=== PATIENT | male | born 1980 | race Hispanic/Latino ===

== ENCOUNTER 2021-05-23 02:57 | Inpatient (IN) | payer OTHER, SELFPAY ==
[2021-05-23] VITALS (8 sets, daily range): BP systolic 107–138; BP diastolic 66–90; PULSE 89–97; RESP 15–18; TEMP 36.1–36.6; O2SAT 94–99; BMI 28.4; BMI 27.6
--- NOTE | 2021-05-23 02:59 | ED.CHESTPAIN ---
HPI - Chest Pain General Chief Complaint: Upper Respiratory Symptoms Stated Complaint: covid+/heart trouble Time Seen by Provider: 05/23/21 02:59 History of Present Illness HPI narrative: 41-year-old male nonsmoker with noncontributory medical history presents with a chief complaint of feeling fatigued with chills, achy for the past day or 2. He has been vaccinated against COVID but started developing symptoms on Monday and then Monday tested positive at a local drug store. He has had nasal congestion but denies any runny nose or sore throat. He denies any vomiting but has been nauseated with poor appetite. He is drinking water and keeping it down. He denies abdominal pain, diarrhea, dysuria, frequency or urgency. He feels dizzy, weak, lightheaded, and a bit confused. Related Data Allergies Allergy/AdvReac Type Severity Reaction Status Date / Time No Known Drug Allergies Allergy Verified 05/23/21 03:06 Review of Systems Review of Systems Narrative: GENERAL: See HPI HEENT: Denies sinus pain, ear pain, sore throat, difficulty swallowing, dizziness. RESPIRATORY: Denies dyspnea, cough, wheezing, hemoptysis, sputum. CARDIOVASCULAR: Denies chest pain, palpitations, orthopnea, edema, GASTROINTESTINAL: See HPI. : Denies dysuria, frequency, incontinence, hematuria, urinary retention. MUSCULOSKELETAL: denies weakness, joint pain, or bony pain SKIN: Denies rash, skin lesions, or other NEUROLOGIC: Denies weakness, headache, numbness, change in speech, confusion, seizures, incoordination. PSYCHIATRIC: No concerning psychosocial issues. 12 point review of systems is negative except for those stated above Patient History Social History Smoking Status: Never smoker Exam Narrative Exam Narrative: GENERAL: [41 year old patient appears stated age. Well-developed patient, in mild distress. Anxious, clearly not feeling well HEAD: Atraumatic. Normocephalic. EYES: Pupils equal round and reactive. Extraocular motions intact. No scleral icterus. No injection or drainage. ENT: Dry mucous mebranes. Nose without bleeding, purulent drainage. Throat without erythema, tonsillar hypertrophy or exudate. Airway patent. NECK: Trachea midline. Non tender CARDIOVASCULAR: Regular rate and rhythm without murmurs, gallops, or rubs. RESPIRATORY: Clear to auscultation. Breath sounds equal bilaterally. No wheezes, rales, or rhonchi. GASTROINTESTINAL: Abdomen soft, non-tender, nondistended. EXTREMITIES: No edema or joint tenderness. BACK: Nontender without deformity or crepitance. No flank tenderness. NEURO: AOx3. SKIN: No rash or erythema of visible areas Initial Vital Signs Initial Vital Signs: Vital Signs Temperature 97 F L 05/23/21 03:06 Pulse Rate 97 H 05/23/21 03:06 Respiratory Rate 15 05/23/21 03:06 Blood Pressure 133/90 05/23/21 03:06 Pulse Oximetry 98 05/23/21 03:06 Course Orders Ordered: ED Orders 05/23/21 03:06 EKG-12 Lead Stat 05/23/21 03:07 XR chest 1V Stat 05/23/21 03:15 C-Reactive Protein Quant Stat Complete Blood Count AUTO DIFF Stat Comprehensive Metabolic Panel Stat D Dimer Stat Lactate Dehydrogenase Stat NT-proBNP (BNP-Adult 18+) Stat Troponin & CK Cardiac Panel Stat 05/23/21 03:58 COVID19 - ADMIT ([employer]OR [employer] swab/PCR) Stat 05/23/21 04:00 Osmolality Urine Stat Osmolality, Serum Stat Sodium Urine Random Stat Discontinued Medications Sodium Chloride (Normal Saline 0.9%) 1,000 mls @ 1,000 mls/hr IV BOLUS ONE Stop: 05/23/21 04:05 Last Infusion: 05/23/21 04:24 Dose: Infused Documented by: Vital Signs Vital signs: Vital Signs - 8 hr 05/23/21 03:06 Temperature 97 F L Pulse Rate 97 H Respiratory Rate 15 Blood Pressure 133/90 Pulse Oximetry 98 MDM - Chest Pain Lab Data Result diagrams: 05/23/21 03:15 05/23/21 03:15 Labs: Lab Results 05/23/21 05/23/21 05/23/21 Range/Units 03:15 03:15 03:15 WBC 8.6 (4.5-11.0) X10^3/uL RBC 5.30 (4.5-5.9) X10^6/uL Hgb 14.8 (13.5-17.5) g/dL Hct 43.9 (41-53) % MCV 82.7 (80-100) fL MCH 27.9 (26-34) PG MCHC 33.7 (30-36) % RDW 13.4 (11.6-14.8) % Plt Count 159 (150-400) X10^3/uL Neut % (Auto) 76.1 H (50-75) % Lymph % (Auto) 18.7 L (25-40) % [place] % (Auto) 4.6 (3-14) % Eos % (Auto) 0.0 L (2-4) % Baso % (Auto) 0.6 (0-2) % Neut # (Auto) 6500 (2415-3370) /uL Lymph # (Auto) 1600 (7362-5163) /uL [place] # (Auto) 400 (0-900) /uL Eos # (Auto) 0 (0-450) /uL Baso # (Auto) 100 (0-100) /uL D-Dimer 324 H (<230) ng/mL Sodium 127 L (137-145) mmol/L Potassium 3.8 (3.4-5.1) mmol/L Chloride 91 L (98-107) mmol/L Carbon Dioxide 27 (22-32) mmol/L BUN 9 (9-20) mg/dL Creatinine 0.78 (0.66-1.25) mg/dL Estimated GFR > 60.0 (>60) mL/min BUN/Creatinine Ratio 11.5 (6-22) Glucose 113 H (70-100) mg/dL Calcium 8.4 (8.4-10.2) mg/dL Total Bilirubin 0.6 (0.2-1.3) mg/dL AST 72 H (17-59) IU/L ALT 38 (<50) IU/L Alkaline Phosphatase 84 (38-126) U/L Lactate Dehydrogenase (313-618) U/L Total Creatine Kinase (55-170) U/L CK-MB (CK-2) (<2.37) ng/mL CK-MB (CK-2) Rel Index (1.5-5.0) % Troponin I (0.01-0.034) ng/mL C-Reactive Protein 6.9 H (<1.0) mg/dL NT-Pro-B Natriuret Pep (<125) pg/mL Total Protein 7.6 (6.3-8.2) g/dL Albumin 4.1 (3.5-5.0) g/dL Globulin 3.5 (1.7-4.1) g/dL Albumin/Globulin Ratio 1.2 (1.0-2.8) Ur Random Sodium (30-90) mmol/L SARS-CoV-2 (PCR) (Negative) 05/23/21 05/23/21 05/23/21 Range/Units 03:15 03:58 04:13 WBC (4.5-11.0) X10^3/uL RBC (4.5-5.9) X10^6/uL Hgb (13.5-17.5) g/dL Hct (41-53) % MCV (80-100) fL MCH (26-34) PG MCHC (30-36) % RDW (11.6-14.8) % Plt Count (150-400) X10^3/uL Neut % (Auto) (50-75) % Lymph % (Auto) (25-40) % [place] % (Auto) (3-14) % Eos % (Auto) (2-4) % Baso % (Auto) (0-2) % Neut # (Auto) (8810-2694) /uL Lymph # (Auto) (7802-6936) /uL [place] # (Auto) (0-900) /uL Eos # (Auto) (0-450) /uL Baso # (Auto) (0-100) /uL D-Dimer (<230) ng/mL Sodium (137-145) mmol/L Potassium (3.4-5.1) mmol/L Chloride (98-107) mmol/L Carbon Dioxide (22-32) mmol/L BUN (9-20) mg/dL Creatinine (0.66-1.25) mg/dL Estimated GFR (>60) mL/min BUN/Creatinine Ratio (6-22) Glucose (70-100) mg/dL Calcium (8.4-10.2) mg/dL Total Bilirubin (0.2-1.3) mg/dL AST (17-59) IU/L ALT (<50) IU/L Alkaline Phosphatase (38-126) U/L Lactate Dehydrogenase 997 H (313-618) U/L Total Creatine Kinase 906 H (55-170) U/L CK-MB (CK-2) 1.34 (<2.37) ng/mL CK-MB (CK-2) Rel Index 0.1 L (1.5-5.0) % Troponin I < 0.012 (0.01-0.034) ng/mL C-Reactive Protein (<1.0) mg/dL NT-Pro-B Natriuret Pep < 11 (<125) pg/mL Total Protein (6.3-8.2) g/dL Albumin (3.5-5.0) g/dL Globulin (1.7-4.1) g/dL Albumin/Globulin Ratio (1.0-2.8) Ur Random Sodium 18 L (30-90) mmol/L SARS-CoV-2 (PCR) Positive H (Negative) Imaging Data Chest x-ray: Radiologist's Impression: Patchy parenchymal opacities bilaterally greater on the left consistent with pneumonia ECG Data Interpretation: EKG is normal sinus rhythm rate [87 ] and free of any signs of ischemia or ectopy. No ST segmental elevation or depression. No T wave inversions Discharge Plan Departure Patient Disposition: Admitted As Inpatient Clinical Impression: COVID-19, Acute hyponatremia Admit Date/Time: 05/23/21 04:42 Admit Provider: Wiley Kennedy
--- NOTE | 2021-05-23 03:07 | DI.RAD.S_ITS ---
PROCEDURE: XR CHEST 1V INDICATIONS: flu-like symptoms TECHNIQUE: One view of the chest was acquired. COMPARISON: None. FINDINGS: Surgical changes and devices: None. Lungs and pleura: Bilateral patchy interstitial type infiltrates are seen. No pleural effusions or pneumothorax. Low lung volumes are noted. This causes a crowded appearance to the lung markings and limits evaluation. Mediastinum: Mediastinal contours appear normal. Heart size is normal. Bones and chest wall: No suspicious bony lesions. Overlying soft tissues appear unremarkable. IMPRESSION: Bilateral interstitial infiltrates are seen. Please consider COVID pneumonia. Note: No significant discrepancy from the preliminary report. Dictated by: Pedro Pablo Garnica M.D. on 05/23/2021 at 8:08 Approved by: Pedro Pablo Garnica M.D. on 05/23/2021 at 8:09
[2021-05-23] MEDS: SODIUM CHLORIDE 0.9% 1,000 ML 1000 ML IV (03:23)
[2021-05-23 03:29] LABS: Add Manual Diff / Slide Review NO; Basophils Absolute Auto 100 /uL (0-100); Basophils Percent Auto 0.6 % (0-2); Eosinophils Absolute Auto 0 /uL (0-450); Hematocrit 43.9 % (41-53); Hemoglobin 14.8 g/dL (13.5-17.5); Lymphocytes Absolute Auto 1600 /uL (1100-4500); Lymphocytes Percent Auto 18.7 % (25-40); Mean Corpuscular HGB Conc 33.7 % (30-36); Mean Corpuscular Hemoglobin 27.9 PG (26-34); Mean Corpuscular Volume 82.7 fL (80-100); Monocytes Absolute Auto 400 /uL (0-900); Monocytes Percent Auto 4.6 % (3-14); Neutrophils Absolute Auto 6500 /uL (1500-7000); Neutrophils Percent Auto 76.1 % (50-75); Platelet Count 159 X10^3/uL (150-400); Red Cell Distribution Width 13.4 % (11.6-14.8); White Blood Cell Count 8.6 X10^3/uL (4.5-11.0)
[2021-05-23 03:37] LABS: D Dimer 324 ng/mL (<230)
[2021-05-23 03:38] LABS: Creatine Kinase 906 U/L (55-170); Lactate Dehydrogenase 997 U/L (313-618)
[2021-05-23 03:40] LABS: Alanine Aminotransferase 38 IU/L (<50); Albumin 4.1 g/dL (3.5-5.0); Albumin Globulin Ratio 1.2 (1.0-2.8); Alkaline Phosphatase 84 U/L (38-126); Aspartate Aminotransferase 72 IU/L (17-59); BUN Creatinine Ratio 11.5 (6-22); Bilirubin Total 0.6 mg/dL (0.2-1.3); Blood Urea Nitrogen 9 mg/dL (9-20); C-Reactive Protein Quant 6.9 mg/dL (<1.0); Calcium 8.4 mg/dL (8.4-10.2); Carbon Dioxide 27 mmol/L (22-32); Chloride 91 mmol/L (98-107); Estimated Glomerular Filt Rate > 60.0 mL/min (>60); Globulin 3.5 g/dL (1.7-4.1); Glucose 113 mg/dL (70-100); HEMOLYSIS 16 (0-50); Potassium 3.8 mmol/L (3.4-5.1); Sodium 127 mmol/L (137-145); Total Protein 7.6 g/dL (6.3-8.2)
[2021-05-23 03:49] LABS: NT-proBNP (BNP-Adult 18+) < 11 pg/mL (<125); Troponin I < 0.012 ng/mL (0.01-0.034)
[2021-05-23 03:53] LABS: CKMB % Relative Index 0.1 % (1.5-5.0); Creatine Kinase MB 1.34 ng/mL (<2.37)
[2021-05-23 04:35] LABS: Sodium Urine Random 18 mmol/L (30-90)
[2021-05-23 04:44] LABS: COVID19 - ADMIT (NP swab/PCR) POSITIVE (Negative)
--- NOTE | 2021-05-23 05:52 | P.HP_ITS ---
History of Present Illness History of Present Illness Date Patient Seen: 05/23/21 Time Patient Seen: 06:00 Chief complaint: covid+/heart trouble Narrative: Mr. Romero is a 41M with no significant PMH who presents with fatigue, chills, adn some confusion. He states he has been vaccinated against COVID> His symptoms began with nasal congestion on Monday, he tested positive for COVID Monday. He has been nauseous and not eating well. No abdominal pain, vomiting, diarrhea. No shortness of breath. He has had a cough he thinks secondary to his postnasal drip. In the ED workup was done, vitals were normal. CBC was unremarkable, Na 127, urine na 18, creatinine 0.78, crp 6.9, ldh 997, COVID+. Chest xray showed bilateral opacities. He was given IVF and admitted for further treatment. PMH: None Family History: Father, Hypertension Social history: No smoking, occassional alcohol Meds: None Patient History Family & Social History Safety & Behavioral: Feels Safe in Current Yes Environment Tobacco & Substance use: Smoking Status Never smoker Substance Use Type does not use Meds Home Medications and Allergies Allergies Allergy/AdvReac Type Severity Reaction Status Date / Time No Known Drug Allergies Allergy Verified 05/23/21 03:06 Review of Systems Review of Systems Narrative: 14 systems reviewed and negative aside from what is noted in HPI Exam Vital Signs (past 8 hours): - 05/23/21 03:06 05/23/21 05:15 05/23/21 05:46 Temperature 97 F L 98 F 98 F Pulse Rate 97 H 96 H 96 H Respiratory Rate 15 18 18 Blood Pressure 133/90 138/79 138/79 Pulse Oximetry 98 99 99 Oxygen Delivery Method Room Air Narrative Exam Narrative: GEN: no acute distress HEENT: PERRL, dry mucous membranes NECK: no jvd, trachea midline CV: regular rate and rhythm, no murmurs PULM: clear bilaterally, no wheezes, rhonchi, rales ABD: soft, nontender, nondistended, no organomegaly, normal bowel sounds EXT: warm and well perfused with no edema NEURO: awake alert and oriented, mild confusion, no focal deficits PSYCH: pleasant, cooperative Objective Labs Result Diagrams: 05/23/21 03:15 05/23/21 03:15 Labs: Laboratory Results - last 24 hr 05/23/21 05/23/21 05/23/21 03:15 03:15 03:15 WBC 8.6 RBC 5.30 Hgb 14.8 Hct 43.9 MCV 82.7 MCH 27.9 MCHC 33.7 RDW 13.4 Plt Count 159 Neut % (Auto) 76.1 H Lymph % (Auto) 18.7 L [place] % (Auto) 4.6 Eos % (Auto) 0.0 L Baso % (Auto) 0.6 Neut # (Auto) 6500 Lymph # (Auto) 1600 [place] # (Auto) 400 Eos # (Auto) 0 Baso # (Auto) 100 D-Dimer 324 H Sodium 127 L Potassium 3.8 Chloride 91 L Carbon Dioxide 27 BUN 9 Creatinine 0.78 Estimated GFR > 60.0 BUN/Creatinine Ratio 11.5 Glucose 113 H Calcium 8.4 Total Bilirubin 0.6 AST 72 H ALT 38 Alkaline Phosphatase 84 Lactate Dehydrogenase Total Creatine Kinase CK-MB (CK-2) CK-MB (CK-2) Rel Index Troponin I C-Reactive Protein 6.9 H NT-Pro-B Natriuret Pep Total Protein 7.6 Albumin 4.1 Globulin 3.5 Albumin/Globulin Ratio 1.2 Ur Random Sodium SARS-CoV-2 (PCR) 05/23/21 05/23/21 05/23/21 03:15 03:58 04:13 WBC RBC Hgb Hct MCV MCH MCHC RDW Plt Count Neut % (Auto) Lymph % (Auto) [place] % (Auto) Eos % (Auto) Baso % (Auto) Neut # (Auto) Lymph # (Auto) [place] # (Auto) Eos # (Auto) Baso # (Auto) D-Dimer Sodium Potassium Chloride Carbon Dioxide BUN Creatinine Estimated GFR BUN/Creatinine Ratio Glucose Calcium Total Bilirubin AST ALT Alkaline Phosphatase Lactate Dehydrogenase 997 H Total Creatine Kinase 906 H CK-MB (CK-2) 1.34 CK-MB (CK-2) Rel Index 0.1 L Troponin I < 0.012 C-Reactive Protein NT-Pro-B Natriuret Pep < 11 Total Protein Albumin Globulin Albumin/Globulin Ratio Ur Random Sodium 18 L SARS-CoV-2 (PCR) Positive H Assessment & Plan Assessment & Plan narrative: Mr. Romero is a 41M with no significant PMH who presents with confusion, fatigue, nausea found to have COVID pneumonia and hyponatremia. 1. Metabolic encephalopathy secondary to hypovolemic hyponatremia -likely secondary to acute illness from COVID -Na moderately decreased to 127, physical exam shows hypovolemia, urine Na low at 18 -received IVF in ED, continue IV fluid -recheck sodium -if symptoms not resolved will need to consider further workup for source of confusion -osms sent by ED are pending 2. Covid pneumonia -currently doing well from respiratory standpoint, not requiring oxygen -supportive care for now CODE: Full Proxy: Mia Romero, spouse I?have utilized all available immediate resources to obtain, update, or review the patient's current medications. Time Spent With Patient Critical Care time: I spent a total of [] minutes of critical care time on this patient's care today; this time is exclusive of procedural time. Quality MIPS - Admit I confirm the patient?s Advance Care Plan is present, Code status is documented, Surrogate decision maker is in patient?s record [If Yes, STOP here]: Yes
[2021-05-23] MEDS: SODIUM CHLORIDE 0.9% 1,000 ML 125 ML IV ×2 (06:34→14:26)
[2021-05-23] MEDS: ACETAMINOPHEN 325 MG TABLET 650 MG PO (06:34)
[2021-05-23] MEDS: diphenhydrAMINE 25 MG TABLET PO (06:34)
--- NOTE | 2021-05-23 06:49 | PC.ADMIT ---
Patient admitted to room 219 per wheelchair from ED. Up to bathroom with SBA as complains of feeling weak and dizzy. Is alert and oriented. Breath sounds CTA with RA sat of 99%. States he feels SOB when lying flat but otherwise denies. Does have occasional dry sounding, non-productive cough and sounds like some nasal congestion. HRR; denies chest pain. Denies nausea. BT present and abdomen is soft. Denies dysuria, frequency or urgency; voided 525cc clear yellow urine per urinal. Is able to move self in bed. Does complain of 8/10 headache and so medicated with Tylenol. States he has had body aches but no fever. Bilateral calf SCD's applied. Fall risk score is moderate; agrees to call for assistance when needing to get out of bed so alarm not activated. Placed on droplet/aerosolizing precautions as is covid positive. Oriented to bed controls and call light. Dr Kennedy in to see patient. [address] Admission Note: The patient,Juan Romero,41 y/o, was given written information regarding hospital policies, unit procedures and contact persons. Patient's smoking status: Never smoker. Vital Signs - 8 hr 05/23/21 03:06 05/23/21 05:15 05/23/21 05:46 Temperature 97 F L 98 F 98 F Pulse Rate 97 H 96 H 96 H Respiratory Rate 15 18 18 Blood Pressure 133/90 138/79 138/79 Pulse Oximetry 98 99 99
[2021-05-23 07:53] LABS: BUN Creatinine Ratio 11.9 (6-22); Blood Urea Nitrogen 7 mg/dL (9-20); Calcium 7.8 mg/dL (8.4-10.2); Carbon Dioxide 25 mmol/L (22-32); Chloride 96 mmol/L (98-107); Estimated Glomerular Filt Rate > 60.0 mL/min (>60); Glucose 111 mg/dL (70-100); HEMOLYSIS < 15 (0-50); Potassium 3.8 mmol/L (3.4-5.1); Sodium 127 mmol/L (137-145)
[2021-05-23] MEDS: ENOXAPARIN 40 MG/0.4 ML SYRINGE SUBCUT (09:46)
--- NOTE | 2021-05-23 10:50 | CM.DANOTE ---
DCP: Case received, EMR reviewed. Did not meet with patient in person secondary to his being COVID positive, but was able to call patient's room. Did call his room and introduced self and role. Was able to obtain information regarding some of his history prior to hospitalization. DCP assessment was completed with information currently available. Patient is a 41 year old male who admitted early this morning to the care of the hospitalist team. PCP: No specific provider at this time, per patient. Payer: confirmed: Radhika Truong. Patient came to the hospital via private vehicle secondary to having increased weakness, as well as chills. Patient had been diagnosed last Monday with COVID 19. He has been vaccinated. He came in due to these symptoms, including nausea and loose stools. His current diagnosis is COVID, hyponatremia, as well as possible pneumonia. He is not on oxygen. Called patient's room. He is alert. Confirmed that he resides in [place] with his spouse, and children. He is in the [employer], had been active duty. He indicated that he does not have a primary provider at this time. He also mentioned that his was positive for COVID, and in isolation as well. P: DCP to continue to follow for any needs. He is currently not in need of oxygen, he will continue to get fluids, to stabilize electrolytes. He should be able to go home when he is deemed medically stable. Edel Kauffman RN/Digital Engineer Discharge Planning/Care Management CM Discharge Assessment Start: 05/23/21 10:48 Freq: Status: Active Protocol: Document 05/23/21 10:48 (Rec: 05/23/21 10:49 [id number]) Discharge Planning Assessment Assigned Channel Worker Edel Kauffman RN/Digital Engineer Advance Directives? No History Provided By Patient,Medical Record Prior Living Arrangements House Household Members spouse,children Type of transporation used prior to Drives own vehicle admit Independent with ADL's Yes Is patient alert and oriented? Yes Caregiver for Another Has children at home Barriers to Discharge No Discharge Plan Home Transportation Arrangement Spouse Referrals Initiated None needed Whiteboard Updated in Patient Room with No name and ext. # of Channel Worker Comment Patient is COVID positive, did not enter room. Review Status In Process Next Review Type Continued Stay Review
[2021-05-23] MEDS: CYCLOBENZAPRINE 10 MG TABLET PO (12:45)
[2021-05-23] MEDS: IBUPROFEN 400 MG TABLET 800 MG PO ×2 (12:46→20:39)
[2021-05-23] MEDS: ONDANSETRON 4 MG ODT SL (12:46)
--- NOTE | 2021-05-23 19:22 | PC.NURSE ---
TOLERATING RA W/O PROBLEMS. O2 SATS HIGH 90S. DENIES SOB/DYSPNEA. AMBULATE IN ROOM SHORT DISTANCES NO SOB. USED CALL LIGHT X 3 FOR SBA W/ AMBULATE TO BATHROOM. APPETITE IS FAIR. SNACKS OFFERED BETWEEN MEALS. CONTINUES W/ IVF NS AT 125. CBC AND BMP TOMORROW
[2021-05-24 02:57] VITALS: BMI 27.6
[2021-05-24] MEDS: IBUPROFEN 400 MG TABLET 800 MG PO (04:30)
[2021-05-24 05:35] LABS: Add Manual Diff / Slide Review NO; Basophils Absolute Auto 100 /uL (0-100); Basophils Percent Auto 0.7 % (0-2); Eosinophils Absolute Auto 0 /uL (0-450); Hematocrit 39.4 % (41-53); Hemoglobin 13.2 g/dL (13.5-17.5); Lymphocytes Absolute Auto 1200 /uL (1100-4500); Lymphocytes Percent Auto 16.1 % (25-40); Mean Corpuscular HGB Conc 33.4 % (30-36); Mean Corpuscular Volume 83.7 fL (80-100); Monocytes Absolute Auto 200 /uL (0-900); Monocytes Percent Auto 2.5 % (3-14); Neutrophils Absolute Auto 5800 /uL (1500-7000); Neutrophils Percent Auto 80.7 % (50-75); Platelet Count 172 X10^3/uL (150-400); Red Blood Cell Count 4.71 X10^6/uL (4.5-5.9); Red Cell Distribution Width 13.6 % (11.6-14.8); White Blood Cell Count 7.3 X10^3/uL (4.5-11.0)
[2021-05-24 05:42] LABS: BUN Creatinine Ratio 10.9 (6-22); Blood Urea Nitrogen 7 mg/dL (9-20); Calcium 7.7 mg/dL (8.4-10.2); Carbon Dioxide 28 mmol/L (22-32); Chloride 98 mmol/L (98-107); Estimated Glomerular Filt Rate > 60.0 mL/min (>60); Glucose 92 mg/dL (70-100); HEMOLYSIS < 15 (0-50); Sodium 131 mmol/L (137-145)
[2021-05-24 08:20] VITALS: BP 122/68; PULSE 93; RESP 19; TEMP 37.1; O2SAT 94
[2021-05-24] MEDS: ENOXAPARIN 40 MG/0.4 ML SYRINGE SUBCUT (08:46)
[2021-05-24] MEDS: SODIUM CHLORIDE 0.9% 1,000 ML 125 ML IV (08:48)
--- NOTE | 2021-05-24 09:21 | DIET.CONS ---
Dietary Consultation Note Admission Date: 05/23/2021 04:42 Assessment: Kitchen sending up ONS Ensure Max to support high protein needs of this overweight pt c covid+ status. Ht: 177.8 cm Wt: 87.5 kg BMI: 27.6 Last BM: 05/23/21 (05/24/21 02:57) MNA: 14 Arthur Score: 20 Diet: 05/23/21 Breakfast Heart Healthy Diet Diet Modifications: ONS Ensure Max c lunch Percent of last meal consumed (last 48h) Percent Meal Consumed 75% 05/23/21 18:29 Percent Meal Consumed Drank all of his protein shake 05/23/21 13:18 Percent Meal Consumed a few sips of protein shake/ made 05/23/21 11:45 him nauseous Labs: RBC 4.71 X10^6/uL (4.5-5.9) 05/24/21 05:09 Hgb 13.2 g/dL (13.5-17.5) L 05/24/21 05:09 Hct 39.4 % (41-53) L 05/24/21 05:09 Creatinine 0.64 mg/dL (0.66-1.25) L 05/24/21 05:09 NT-Pro-B Natriuret Pep < 11 pg/mL (<125) 05/23/21 03:15
[2021-05-24 09:45] VITALS: O2SAT 94
--- NOTE | 2021-05-24 10:20 | PM.DS.1 ---
History of Present Illness History of Present Illness Date Patient Seen: 05/24/21 Time Patient Seen: 10:20 Chief complaint: covid+/heart trouble Narrative: Per Dr. Kennedy, Mr. Romero is a 41M with no significant PMH who presents with fatigue, chills, adn some confusion. He states he has been vaccinated against COVID> His symptoms began with nasal congestion on Monday, he tested positive for COVID Monday. He has been nauseous and not eating well. No abdominal pain, vomiting, diarrhea. No shortness of breath. He has had a cough he thinks secondary to his postnasal drip. In the ED workup was done, vitals were normal. CBC was unremarkable, Na 127, urine na 18, creatinine 0.78, crp 6.9, ldh 997, COVID+. Chest xray showed bilateral opacities. He was given IVF and admitted for further treatment. PMH: None Family History: Father, Hypertension Social history: No smoking, occassional alcohol Meds: None Discharge Providers Provider Date of admission: 05/23/21 04:42 Discharge Date: 05/24/21 Consults: 05/23/21 06:11 Consult to Pastoral Services Routine Comment: patient request Discharge provider: Victorino Chopra DO Summary Hospital Course Discharge Diagnosis: 1. Metabolic encephalopathy secondary to hypovolemic hyponatremia, acute, present on admission, now resolved 2. Covid pneumonia and diarrhea, diarrhea resolved Hospital Course: This is a 41-year-old male admitted with mild confusion in the setting of hypovolemic hyponatremia secondary to diarrhea from a COVID-19 infection. His sodium level continued to improve with fluids, and urine sodium was consistent with hypovolemia given a urine sodium of 18. His diarrhea resolved shortly after admission and he improved quicker than expected. The following morning, his sodium was 131, and he was tolerating oral intake well. He was discharged home. He is recommended to self isolate at home per CDC guidelines. Patient was vaccinated against COVID-19. Time Spent with Patient Time spent: Less than 30 minutes Exam Vital Signs (past 8 hours): - 05/24/21 08:20 05/24/21 09:45 Temperature 98.8 F Pulse Rate 93 H Respiratory Rate 19 Blood Pressure 122/68 Pulse Oximetry 94 94 Oxygen Delivery Method Room Air Oxygen Flow Rate 0 Narrative Exam Narrative: GEN: mildly ill appearing, fatigued, but no acute distress HEENT: PERRL, moist mucous membranes NECK: no jvd, trachea midline CV: regular rate and rhythm, no murmurs PULM: clear bilaterally, no wheezes, rhonchi, rales ABD: soft, nontender, nondistended, no organomegaly EXT: warm and well perfused with no edema NEURO: awake alert and oriented, mild confusion, no focal deficits PSYCH: pleasant, cooperative Objective Labs Result Diagrams: 05/24/21 05:09 05/24/21 05:09 Labs: Laboratory Results - last 24 hr 05/24/21 05/24/21 05:09 05:09 WBC 7.3 RBC 4.71 Hgb 13.2 L Hct 39.4 L MCV 83.7 MCH 28.0 MCHC 33.4 RDW 13.6 Plt Count 172 Neut % (Auto) 80.7 H Lymph % (Auto) 16.1 L [place] % (Auto) 2.5 L Eos % (Auto) 0.0 L Baso % (Auto) 0.7 Neut # (Auto) 5800 Lymph # (Auto) 1200 [place] # (Auto) 200 Eos # (Auto) 0 Baso # (Auto) 100 Sodium 131 L Potassium 4.0 Chloride 98 Carbon Dioxide 28 BUN 7 L Creatinine 0.64 L Estimated GFR > 60.0 BUN/Creatinine Ratio 10.9 Glucose 92 Calcium 7.7 L PFSH Social History household members: spouse and children Smoking Status: Never smoker alcohol intake: former Discharge Plan Discharge Plan Patient Disposition: Home Provider Discharge Comment: You were admitted to the hospital with a low sodium level and dehydration due to COVID 19. You improved with IV fluids. Continue to stay well hydrated at home. Discharge orders & Medications Prescriptions: Continued acetaminophen [Tylenol] 325 mg Tablet 650 mg PO Q4H PRN (Reason: pain) RF: 0 ibuprofen [Advil] 200 mg Tablet 200 mg PO Q6H PRN (Reason: aches) RF: 0 Diet/Activity/Treatments Diet: Diet as Tolerated Activity: As tolerated Quality VTE Deep Vein Thrombosis/Pulmonary Embolism Present on Admission: No
--- NOTE | 2021-05-24 11:05 | PC.NURSE ---
Patient given discharge instructions regarding hydration, s/s of worsening condition and quarantine. Patient verbalized understanding. R FA IV removed without complications. Patient denied pain or further questions regarding discharge. VSS. Call light in reach.
[2021-05-24 14:51] LABS: Osmolality Urine 382 mOsmol/kg (.)
[2021-05-24 14:51] LABS: Osmolality, Serum 257 mOsmol/kg (275-295)
== END 2021-05-24 11:30 | disposition home or self-care (01) | DRG 177 ==
LOC: ED 04:33 → AC 04:45
PROVIDERS: Internal Medicine; Admitting Provider Internal Medicine; Emergency Provider Emergency Medicine; Referring Provider Emergency Medicine; Visit Provider Internal Medicine
DX: U07.1 COVID-19 (principal); J12.82 Pneumonia due to coronavirus disease 2019; G93.41 Metabolic encephalopathy; E87.1 Hypo-osmolality and hyponatremia; E86.1 Hypovolemia
CPT/HCPCS: 36415; 71045; 80048; 80053; 82550; 82553; 83615; 83880; 83930; 83935; 84300; 84484; 85025; 85379; 86140; 87635; 93005; 93010; 94760; 96360; 99284; 99285; C9803; J1650